=== PATIENT | female | born 1950 | race Hispanic/Latino ===

== ENCOUNTER 2017-06-09 07:38 | Day surgery (SDC) | payer MEDICARE ==
[2017-05-30 10:30] VITALS: BMI 28.8
[2017-06-09] MEDS ORDERED: Lidocaine/Prilocaine 2.5%-2.5% Cream(30 gm) TOP ONE (08:21)
[2017-06-09] MEDS ORDERED: Sodium Chloride 0.9% 1,000 ML IV SCH (09:00)
[2017-06-09] MEDS ORDERED: Propofol 10 mg/ml Inj (20 ML) ONE ×2 (09:05→09:35)
[2017-06-09] MEDS ORDERED: Midazolam 2 MG/2 ML VIAL ONE (09:06)
[2017-06-09] MEDS ORDERED: Atropine 0.4 mg/ml Inj (1 mL) ONE (09:31)
[2017-06-09 10:32] VITALS: RESP 16
[2017-06-09 11:34] VITALS: BP 120/74; PULSE 88; TEMP 98.7; O2SAT 98
== END 2017-06-09 12:00 | disposition home or self-care (01) ==
LOC: ENDO 07:38
PROVIDERS: ATTEND Internal Medicine Gastroenterology
DX: Z12.11 Encounter for screening for malignant neoplasm of colon (principal); K57.30 Diverticulosis of large intestine without perforation or abscess without bleeding; K63.89 Other specified diseases of intestine; K64.9 Unspecified hemorrhoids; D12.2 Benign neoplasm of ascending colon; K62.1 Rectal polyp; Z86.010 Personal history of colon polyps
CPT/HCPCS: 45384; 88305; J0461; J2250; J2704; J3010; J7040 ×2

== ENCOUNTER 2018-07-05 23:22 | Emergency (ER) | payer MEDICARE ==
[2018-07-05 23:48] VITALS: BP 116/67; PULSE 83; RESP 15; TEMP 97.8; O2SAT 99
[2018-07-05 23:49] VITALS: BMI 30.9
[2018-07-05] MEDS ORDERED: Lidocaine 1% Inj (20ml) IJ STA (23:58)
[2018-07-05] MEDS ORDERED: TDAP Vaccine 0.5 mL Syr IM ONE (23:58)
--- NOTE | 2018-07-05 23:58 | ED PDOC ---
Arrival/HPI - General Historian: Patient - History of Present Illness Narrative History of Present Illness (Text): 07/05/18 23:52 68 y/o female, pmh including htn/hld/IDDM, nkda, last tetanus doesn't remember, c/o head injury and laceration x 2 hours. Pt. stated that she tripped on her shoe, fall and hit the lt. sided head against the counter table, sustained laceration, no LOC, no chest pain/palpitation/dizziness prior to the fall, no neck/back/chest/abdomen/extremity injury or pain, no other medical or psychological complaints. <Russell Post - Last Filed: 07/06/18 02:29> Past Medical History - Provider Review Nursing Documentation Reviewed: Yes - Tetanus Immunization Tetanus Immunization: Unknown - Cardiac Hx Pacemaker: No - Neurological Hx Paralysis: No - Hematological/Oncological Hx Blood Transfusion Reaction: Yes - Musculoskeletal/Rheumatological Hx Musculoskeletal Disorders: No - Psychiatric Hx Emotional Abuse: No Hx Physical Abuse: No Hx Substance Use: No - Anesthesia Hx Anesthesia Reactions: Yes (URINARY RETENTION) Hx Malignant Hyperthermia: No - Suicidal Assessment Feels Threatened In Home Enviroment: No <Russell Post - Last Filed: 07/06/18 02:29> Family/Social History - Physician Review Nursing Documentation Reviewed: Yes Family/Social History: Unknown Family HX Hx Alcohol Use: Yes (SOCIALLY) Hx Substance Use: No <Russell Post - Last Filed: 07/06/18 02:29> Allergies/Home Meds <Sunil Bartholomew - Last Filed: 07/06/18 00:41> <Russell Post - Last Filed: 07/06/18 02:29> Allergies/Adverse Reactions: Allergies codeine Allergy (Verified 05/30/17 10:45) NAUSEA shrimp Allergy (Verified 05/30/17 10:45) RASH Home Medications: Home Meds Medication Instructions Recorded Confirmed Amlodipine Bes/Olmesartan Med 1 tab PO DAILY 05/30/17 06/09/17 [Amlodipine-Olmesartan 5-20 mg] Aspirin [Lo-Dose Aspirin EC] 81 mg PO DAILY 05/30/17 06/09/17 Calcium Carbonate/Vitamin D3 1 tab PO BID 05/30/17 06/09/17 [Caltrate 600 Plus D3 Tablet] Dexlansoprazole [Dexilant] 60 mg PO DAILY 05/30/17 06/09/17 Hydroxychloroquine Sulfate 200 mg PO BID 05/30/17 06/09/17 [Plaquenil] Insulin Degludec [Tresiba 26 - 28 units SC DAILY 05/30/17 06/09/17 Flextouch U-100] Insulin Human Regular [Novolin R] 3 - 6 units SC BID 05/30/17 06/09/17 L.acidoph,Paracasei, B.lactis 1 tab PO DAILY 05/30/17 06/09/17 [Probiotic] Levothyroxine [Synthroid] 112 mcg PO DAILY 05/30/17 06/09/17 Multivit-Minerals/Folic Acid [One 1 tab PO DAILY 05/30/17 06/09/17 Daily Womens 50 Plus Tab] Pravastatin Sodium 80 mg PO DAILY 06/09/17 06/09/17 Review of Systems - Review of Systems Constitutional: absent: Fatigue, Fevers Eyes: absent: Vision Changes ENT: absent: Hearing Changes Respiratory: absent: SOB, Cough Cardiovascular: absent: Chest Pain Gastrointestinal: absent: Abdominal Pain, Diarrhea, Nausea, Vomiting Musculoskeletal: absent: Arthralgias, Back Pain Skin: Laceration. absent: Rash, Pruritis, Skin Lesions, Abscess, Ulcer, Cellulitis Neurological: absent: Headache, Dizziness, Focal Weakness Endocrine: absent: Diaphoresis Psychiatric: absent: Anxiety, Depression, Suicidal Ideation <Russell Post - Last Filed: 07/06/18 02:29> Physical Exam Vital Signs Temp Pulse Resp BP Pulse Ox 07/05/18 23:47 97.8 F 83 15 116/67 99 <Sunil Bartholomew - Last Filed: 07/06/18 00:41> Vital Signs Reviewed: Yes Vital Signs Temp Pulse Resp BP Pulse Ox 07/05/18 23:47 97.8 F 83 15 116/67 99 Temperature: Afebrile Blood Pressure: Normal Pulse: Regular Respiratory Rate: Normal Appearance: Positive for: Well-Appearing, Non-Toxic, Comfortable Pain Distress: Mild Mental Status: Positive for: Alert and Oriented X 3 - Systems Exam Head: Present: Laceration (lt. lateral forehead laceration to the lt. parietal region approx. 10cm superficial to intermediate depth noted. ). No: Contusion, Swelling, Ecchymosis, Abrasion Pupils: Present: PERRL Extroacular Muscles: Present: EOMI Conjunctiva: Present: Normal Mouth: Present: Moist Mucous Membranes Nose (External): Present: Atraumatic. No: Abrasion, Contusion, Laceration, Lesions, Other Nose (Internal): Present: Normal Inspection, No Active Bleeding. No: Rhinorrhea, Septal Hematoma, Epistaxis Neck: Present: Normal Range of Motion, Trachea Midline. No: Meningeal Signs, MIDLINE TENDERNESS, Paraspinal Tenderness, Lymphadenopathy Respiratory/Chest: Present: Clear to Auscultation, Good Air Exchange. No: Respiratory Distress, Accessory Muscle Use, Wheezes, Decreased Breath Sounds, Rales, Retracting, Rhonchi, Tachypneic, Tender to Palpation Cardiovascular: Present: Regular Rate and Rhythm, Normal S1, S2. No: Murmurs Abdomen: No: Tenderness, Distention, Peritoneal Signs, Rebound, Guarding Back: Present: Normal Inspection. No: CVA Tenderness, Midline Tenderness, Paraspinal Tenderness, Pain with Leg Raise, Decubitus Ulcer Upper Extremity: Present: Normal Inspection, Normal ROM, NORMAL PULSES, Neurovascularly Intact, Capillary Refill < 2s. No: Cyanosis, Edema, Deformity Lower Extremity: Present: Normal Inspection, NORMAL PULSES, Normal ROM, Neurovascularly Intact, Capillary Refill < 2 s. No: Edema, CALF TENDERNESS, Sridevi's Sign, Tenderness, Swelling, Deformity Neurological: Present: GCS=15, CN II-XII Intact, Speech Normal Skin: Present: Warm, Dry, Normal Color. No: Rashes Psychiatric: Present: Alert, Oriented x 3, Normal Insight, Normal Concentration <Russell Post Q - Last Filed: 07/06/18 02:29> Medical Decision Making - RAD Interpretation Radiology Orders: 07/05/18 23:58 HEAD W/O CONTRAST [CT] Stat - Medication Orders Current Medication Orders: Discontinued Medications Acetaminophen (Tylenol 325mg Tab) 650 mg PO STAT STA Stop: 07/05/18 23:59 Last Admin: 07/06/18 00:16 Dose: 650 mg MAR Pain/Vitals Document 07/06/18 00:16 EB (Rec: 07/06/18 00:16 EB [facility] [id number] Location Pain Location Body Air Tool Operator Lidocaine HCl (Lidocaine 1% (20ml)) 1 ml IJ STAT STA Stop: 07/05/18 23:59 Tetanus/Reduced Diphtheria/Acell Pertussis (Boostrix Vaccine Inj) 0.5 ml IM .ONCE ONE Stop: 07/05/18 23:59 Last Admin: 07/06/18 00:15 Dose: 0.5 ml Immunization Registry Document 07/06/18 00:15 EB (Rec: 07/06/18 00:15 EB [facility] [id number]) [facility]-Date provided 07/06/18 <Sunil Bartholomew - Last Filed: 07/06/18 00:41> ED Course and Treatment: 07/06/18 00:04 -CT head -Tdap -Wound irrigate and clean 07/06/18 00:05 PROCEDURE: LACERATION REPAIR Performed by the emergency provider Location: Left lateral forehead to left parietal scalp Length: 10 cm Description: clean wound edges,no foreign bodies Distal CMS: Normal. No deficits. Neurovascularly intact. Anesthesia: Lidocaine 1% 3cc Preparation: The wound was cleaned with NS 1000cc and clean with betadine. The area was prepped and draped in the usual sterile fashion. Exploration: The wound was explored and no foreign bodies were found. Procedure: The wound was closed with 6-0 nylon on forehead 2 sutures, 4-0 prolene on the scalp 3 sutures, 5 surgical theron. There was good approximation. In total, 10 were used. Post-Procedure: Good closure and hemostasis. The patient tolerated the procedure well and there were no complications. CSM remains intact. Post procedure dressing applied. 07/06/18 02:01 -CT: Age-appropriate cerebellar and cerebral atrophy. Mild chronic microvascular disease. No evidence of acute intracranial pathology. -PT. feels well, clindamycin ordered for the wound since she is DM -Discharge home with clindamycin, tylenol, bacitracin oinment, follow up with your own pmd within 2 days, sutures and theron need to be removed by day 7, return to the ER for any new or worsening signs or symptoms. - RAD Interpretation Radiology Orders: CT scan of the head. CLINICAL HISTORY: Status post fall. Laceration. TECHNIQUE: Multiple axial CT images were obtained through the brain without IV contrast material. COMMENTS: Bilateral frontal subcutaneous soft tissue hematomas. There is normal configuration of sella turcica. There are no intra or extra- axial collections. There is no mass effect or midline shift. There is no evidence of hematoma formation. No hydrocephalus is present. The ventricles are symmetrical. No abnormal calcifications are present. There is diffuse age-appropriate cerebellar and cerebral atrophy with proportionally dilated ventricles and cortical sulci. There are bilateral periventricular and subcortical white matter hypolucencies compatible with mild chronic microvascular disease. Otherwise, no significant focal abnormalities are seen either in the posterior fossa or supratentorial compartment. IMPRESSION: 1. Age-appropriate cerebellar and cerebral atrophy. 2. Mild chronic microvascular disease. 3. No evidence of acute intracranial pathology. Thank you for your kind referral of this patient. Electronically signed on Jul 06, 2018 1:56:11 AM EDT by: Stephen Clay M.D., Certified by ABR, MSK, Neuroradiology Writer Producer: Radiologist <Russell Post - Last Filed: 07/06/18 02:29> - PA / OIL GAUGER / Resident Statement SHIRA has reviewed & agrees with the documentation as recorded. SHIRA has examined the patient and agrees with the treatment plan. <Sunil Bartholomew - Last Filed: 07/06/18 00:41> - PA / OIL GAUGER / Resident Statement SHIRA has reviewed & agrees with the documentation as recorded. HSIRA has examined the patient and agrees with the treatment plan. <Russell Post - Last Filed: 07/06/18 02:29> Disposition/Present on Arrival <Sunil Bartholomew - Last Filed: 07/06/18 00:41> - Present on Arrival Any Indicators Present on Arrival: No History of DVT/PE: No History of Uncontrolled Diabetes: No Urinary Catheter: No History of Decub. Ulcer: No History Surgical Site Infection Following: None - Disposition Have Diagnosis and Disposition been Completed?: Yes Disposition Time: 02:01 Patient Plan: Discharge <Russell Post - Last Filed: 07/06/18 02:29> - Disposition Diagnosis: Fall, Forehead laceration, Scalp laceration Disposition: HOME/ ROUTINE Patient Problems: Current Active Problems Problem Status Onset Fall Acute Forehead laceration Acute Scalp laceration Acute Condition: IMPROVED Additional Instructions: Discharge home with clindamycin, tylenol, bacitracin oinment, follow up with your own pmd within 2 days, sutures and theron need to be removed by day 7, keep the wound dry and clean for 48 hours, started cleaning using soap and water or hyodrogen peroxide on day 3 with twice daily, use neosporin thin later after each cleaning, return to the ER for any new or worsening signs or symptoms. Prescriptions: Acetaminophen [Tylenol] 2 cap PO QID PRN #30 capsule PRN Reason: Other Bacitracin Ointment [Bacitracin] 1 appful TOP BID #15 g Clindamycin [Cleocin] 300 mg PO TID #21 cap Referrals: Jayme Linton [Primary Care Provider] - Follow up with primary Forms: WORK NOTE
[2018-07-06] MEDS ORDERED: Bacitracin 500 Units/gm Oint Foilpak UD TOP ONE (02:01)
--- NOTE | 2018-07-06 04:48 | CT ---
Date of service: 07/06/2018 PROCEDURE: CT HEAD WITHOUT CONTRAST. HISTORY: lt. head laceration COMPARISON: None available. TECHNIQUE: Axial computed tomography images were obtained through the head/brain without intravenous contrast. Radiation dose: Total exam DLP = 882.2 mGy-cm. This CT exam was performed using one or more of the following dose reduction techniques: Automated exposure control, adjustment of the mA and/or kV according to patient size, and/or use of iterative reconstruction technique. FINDINGS: HEMORRHAGE: No intracranial hemorrhage. BRAIN: No mass effect or edema. Mild volume loss and [id number] white matter changes likely represent chronic microvascular ischemic disease noted. VENTRICLES: Unremarkable. No hydrocephalus. CALVARIUM: Unremarkable. PARANASAL SINUSES: Unremarkable as visualized. No significant inflammatory changes. MASTOID AIR CELLS: Unremarkable as visualized. No inflammatory changes. OTHER FINDINGS: Right frontal scalp soft tissue swelling and small hematoma noted. IMPRESSION: No evidence of acute intracranial hemorrhage mass effect or midline shift. Preliminary report was submitted by [facility] Radiology contains concordant findings.
== END 2018-07-06 02:41 | disposition home or self-care (01) ==
LOC: ED 23:22
DX: S01.81XA Laceration without foreign body of other part of head, initial encounter (principal); S01.01XA Laceration without foreign body of scalp, initial encounter; W01.0XXA Fall on same level from slipping, tripping and stumbling without subsequent striking against object, initial encounter; E78.5 Hyperlipidemia, unspecified; I10 Essential (primary) hypertension; E10.9 Type 1 diabetes mellitus without complications; Z79.4 Long term (current) use of insulin; Z23 Encounter for immunization

== ENCOUNTER 2018-07-12 14:31 | Emergency (ER) | payer MEDICARE ==
[2018-07-12 14:32] VITALS: BMI 30.9
[2018-07-12 14:53] VITALS: BP 129/76; PULSE 85; RESP 18; TEMP 98.5; O2SAT 98
--- NOTE | 2018-07-12 15:17 | ED PDOC ---
Arrival/HPI - General Chief Complaint: Suture/Staple Removal Time Seen by Provider: 07/12/18 14:36 - History of Present Illness Narrative History of Present Illness (Text): 07/12/18 15:17 68-year-old female presents today for suture and staple removal to the left forehead and scalp. Patient states 7 days ago she slipped and fell hitting her head sustaining a laceration. Patient denies headaches dizziness or weakness. No chest pain or shortness of breath. Patient denies fevers or chills. No other complaints Past Medical History - Provider Review Nursing Documentation Reviewed: Yes - Travel History Have you recently traveled outside [place] w/in the past 3 mons?: No - Infectious Disease Hx of Infectious Diseases: None - Tetanus Immunization Tetanus Immunization: Unknown - Reproductive Menopause: Yes - Cardiac Hx Pacemaker: No - Neurological Hx Paralysis: No - Hematological/Oncological Hx Blood Transfusion Reaction: Yes - Musculoskeletal/Rheumatological Hx Musculoskeletal Disorders: No - Psychiatric Hx Emotional Abuse: No Hx Physical Abuse: No Hx Substance Use: No - Anesthesia Hx Anesthesia: Yes Hx Anesthesia Reactions: Yes (URINARY RETENTION) Hx Malignant Hyperthermia: No - Suicidal Assessment Feels Threatened In Home Enviroment: No Family/Social History - Physician Review Nursing Documentation Reviewed: Yes Family/Social History: Unknown Family HX Smoking Status: Never Smoked Hx Alcohol Use: Yes (SOCIALLY) Hx Substance Use: No Allergies/Home Meds Allergies/Adverse Reactions: Allergies codeine Allergy (Verified 07/12/18 14:53) NAUSEA shrimp Allergy (Verified 07/12/18 14:53) RASH Home Medications: Home Meds Medication Instructions Recorded Confirmed Amlodipine Bes/Olmesartan Med 1 tab PO DAILY 05/30/17 06/09/17 [Amlodipine-Olmesartan 5-20 mg] Aspirin [Lo-Dose Aspirin EC] 81 mg PO DAILY 05/30/17 06/09/17 Calcium Carbonate/Vitamin D3 1 tab PO BID 05/30/17 06/09/17 [Caltrate 600 Plus D3 Tablet] Dexlansoprazole [Dexilant] 60 mg PO DAILY 05/30/17 06/09/17 Hydroxychloroquine Sulfate 200 mg PO BID 05/30/17 06/09/17 [Plaquenil] Insulin Degludec [Tresiba 26 - 28 units SC DAILY 05/30/17 06/09/17 Flextouch U-100] Insulin Human Regular [Novolin R] 3 - 6 units SC BID 05/30/17 06/09/17 L.acidoph,Paracasei, B.lactis 1 tab PO DAILY 05/30/17 06/09/17 [Probiotic] Levothyroxine [Synthroid] 112 mcg PO DAILY 05/30/17 06/09/17 Multivit-Minerals/Folic Acid [One 1 tab PO DAILY 05/30/17 06/09/17 Daily Womens 50 Plus Tab] Pravastatin Sodium 80 mg PO DAILY 06/09/17 06/09/17 Review of Systems - Review of Systems Constitutional: absent: Fatigue, Fevers Respiratory: absent: SOB, Cough Cardiovascular: absent: Chest Pain, Palpitations Gastrointestinal: absent: Abdominal Pain, Nausea, Vomiting Skin: Laceration Neurological: absent: Headache, Dizziness Psychiatric: absent: Anxiety, Depression Physical Exam Vital Signs Reviewed: Yes Vital Signs Temp Pulse Resp BP Pulse Ox 07/12/18 14:44 98.5 F 85 18 129/76 98 Temperature: Afebrile Blood Pressure: Normal Pulse: Regular Respiratory Rate: Normal Appearance: Positive for: Well-Appearing, Non-Toxic, Comfortable Pain Distress: None Mental Status: Positive for: Alert and Oriented X 3 - Systems Exam Head: Present: Laceration (healing laceration with 5 sutures and [address] ), Other (no erythema. no purulent discharge. ) Mouth: Present: Moist Mucous Membranes Respiratory/Chest: Present: Clear to Auscultation Cardiovascular: Present: Regular Rate and Rhythm Medical Decision Making ED Course and Treatment: 07/12/18 15:23 Patient is nontoxic well-appearing in no distress. Vital signs are stable. Suture/staple removal: 5 sutures and 5 theron removed from the left frontal forehead and scalp. Wound healing well without signs of infection I advised the patient to keep the wound clean and dry apply bacitracin twice daily and return if symptoms worsen persist or if new symptoms develop. Patient was advised to follow-up with the plastic surgeon. Patient verbalizes understanding of discharge instructions and need for immediate followup. All aspects of this case were discussed the attending of record. Impression: Wound check, suture removal, stable removal Keep the wound clean and dry Apply bacitracin twice daily Follow up with primary care physician within the next 2 days Follow up with the plastic surgeon. Return immediately if symptoms worsen persist or if new symptoms develop Disposition/Present on Arrival - Present on Arrival Any Indicators Present on Arrival: No History of DVT/PE: No History of Uncontrolled Diabetes: No Urinary Catheter: No History of Decub. Ulcer: No History Surgical Site Infection Following: None - Disposition Have Diagnosis and Disposition been Completed?: Yes Diagnosis: Visit for suture removal, Removal of theron Disposition: HOME/ ROUTINE Disposition Time: 15:14 Patient Plan: Discharge Condition: GOOD Discharge Instructions (ExitCare): Staple Removal Additional Instructions: Keep the wound clean and dry Apply bacitracin twice daily Follow up with primary care physician within the next 2 days Follow up with the plastic surgeon. Return immediately if symptoms worsen persist or if new symptoms develop Referrals: Suleiman Newman MD [Staff Provider] - Follow up with primary Tadeo Chou MD [Staff Provider] - Follow up with primary Galileo Kincaid MD [Staff Provider] - Follow up with primary Rupert Dooley MD [Staff Provider] - Follow up with primary
== END 2018-07-12 15:32 | disposition home or self-care (01) ==
LOC: ED 14:31
DX: Z48.02 Encounter for removal of sutures (principal)